=== PATIENT | female | born 1990 | race Two or more races ===

== ENCOUNTER 2017-11-09 16:40 | Inpatient (IN) | payer BC, OTHER ==
[~2017-11-09] VITALS: Ht 170.2 cm; Wt 77.1 kg
[2017-11-09] MEDS ORDERED: LACT. RINGERS/OXYTOCIN 20UNITS 1,000 ML IV SCH (17:08)
[2017-11-09] MEDS ORDERED: PREN27TA7 OR (17:11)
[2017-11-09] MEDS ORDERED: PHISODERM TOP SOLN 240ML BTL TOP PRN (17:15)
[2017-11-09] MEDS ORDERED: NALBUPHINE HCL 10 MG/1ml INJECTION IV PRN (17:15)
[2017-11-09] MEDS ORDERED: WITCH HAZEL-GLYCERIN PAD TOP PRN (17:15)
[2017-11-09] MEDS ORDERED: LIDOCAINE 2% (LOCAL ANESTH.) PF 5ml SDV ID ONE (17:15)
[2017-11-09] MEDS ORDERED: DERMOPLAST 60ML BOTTLE TOP PRN (17:15)
[2017-11-09] MEDS ORDERED: PENICILLIN G POT 5MIL/D5 50ML 50 ML IV ONE (17:15)
[2017-11-09] MEDS ORDERED: METHYLERGONOVINE MALEATE 0.2 MG/ML AMP IM PRN (17:15)
[2017-11-09] MEDS: LACTATED RINGER'S 1,000 ML IV SCH (17:30)
[2017-11-09 18:07] LABS: Eosinophils # (auto) 0 uL; Eosinophils % (auto) 0.1 % (0.0-7.0); Hemoglobin 11.6 g/dL (12.2-16.2); Lymphocytes # (auto) 1.3 uL; Monocytes # (auto) 0.9 uL; Red Cell Distribution Width 15.5 % (11.8-14.3)
[2017-11-09 18:09] LABS: Basophils # (auto) 0 uL; Basophils % (auto) 0.2 % (0.0-2.0); Hematocrit 36.3 % (36.0-46.0); Lymphocytes % (auto) 8.5 % (10.0-50.0); Mean Corpuscular Hemoglobin 23.4 pg (28.0-32.0); Mean Corpuscular Hgb Conc. 31.9 g/dL (32.0-36.0); Mean Corpuscular Volume 73.3 fL (80.0-100.0); Monocytes % (auto) 6.1 % (0.0-12.0); Neutrophils # (auto) 13.2 uL; Neutrophils % (auto) 85.1 % (37.0-80.0); Platelet Count (auto) 238 10^3/uL (140-450); Red Blood Cells 4.95 10^6/uL (4.0-5.20); White Blood Cell 15.4 10^3/uL (4.4-10.8)
[2017-11-09 18:18] LABS: INR 0.86 (0.9-1.15); Prothrombin Time 9.3 sec (9.27-12.13)
[2017-11-09 18:25] LABS: Urine Bacteria FEW /hpf (None Seen); Urine Blood Negative /uL (Negative); Urine Mucus FEW (None Seen); Urine Specific Gravity 1.015 (1.001-1.035); Urine WBC 18 /hpf (0 - 5)
[2017-11-09 18:32] LABS: Albumin 3.1 g/dL (3.4-5.0); BUN/Creatinine Ratio 8.9; Bilirubin, Total 0.3 mg/dL (0.2-1.0); Calcium 8.4 mg/dL (8.5-10.1); Potassium 3.6 mmol/L (3.5-5.1); Total Protein 7.4 g/dL (6.4-8.2)
[2017-11-09] MEDS ORDERED: PENICILLIN G POTASSIUM 2,500,000 UNITS in D5W 5% 50 ML IV SCH (21:15)
[2017-11-09] MEDS: ceFAZolin 1GM/100ML 100 ML IV SCH ×2 (21:24→22:00)
[2017-11-10] MEDS: LACTATED RINGER'S 1,000 ML IV SCH ×2 (01:08→09:08)
[2017-11-10 07:00] VITALS: BP 114/68
[2017-11-10] MEDS ORDERED: ACETAMINOPHEN 325 MG TAB PO PRN (07:30)
[2017-11-10] MEDS ORDERED: IBUPROFEN 600 MG TAB PO PRN (07:30)
[2017-11-10 11:00] VITALS: BP 121/65
[2017-11-10 15:00] VITALS: BP 110/68
[2017-11-10 19:25] VITALS: BP 110/70
[2017-11-10 23:00] VITALS: BP 106/58
[2017-11-11 03:58] VITALS: BP 106/56
[2017-11-11 05:06] LABS: RPR Non Reactive (Non Reactive)
[2017-11-11 07:00] VITALS: BP 113/66
== END 2017-11-11 08:15 | disposition home or self-care (01) | DRG 775 ==
LOC: LDRP 16:40 → OBSVTOIN 17:15 → LDRP 17:30
PROVIDERS: ADMIT Specialist; ATTEND Specialist
PROC: 10E0XZZ Delivery of Products of Conception, External Approach (ICD-10-PCS; principal; 2017-11-10)
DX: O76 Abnormality in fetal heart rate and rhythm complicating labor and delivery (principal); Z22.330 Carrier of Group B streptococcus; Z37.0 Single live birth; Z3A.39 39 weeks gestation of pregnancy
CPT/HCPCS: 36415; 59025; 59409; 80053; 81001; 81002; 85025; 85610; 85730; 86592; 86703; 86762; 86850; 86900; 86901; 87340; 96361; 96365; 96366; G0378; J0690; J2540; J2590; J7060

== ENCOUNTER 2021-11-28 07:28 | Observation (INO) | payer BC ==
[~2021-11-28 07:28] MED LIST: PREN27TA7 OR
== END 2021-11-28 11:38 | disposition home or self-care (01) ==
LOC: LDRP 09:58
PROVIDERS: ADMIT Obstetrics & Gynecology; ATTEND Obstetrics & Gynecology
DX: O48.0 Post-term pregnancy (principal); Z3A.49 Greater than 42 weeks gestation of pregnancy
CPT/HCPCS: 59025; 76818; 81002; 94760; G0378

== ENCOUNTER 2021-11-30 15:57 | Observation (INO) | payer BC | END 2021-11-30 17:38 | disposition home or self-care (01) | LOC: UNDOADMOB 15:57 → LDRP 15:57 | PROVIDERS: ADMIT Obstetrics & Gynecology; ATTEND Obstetrics & Gynecology | DX: O48.0 Post-term pregnancy (principal); Z3A.41 41 weeks gestation of pregnancy | CPT/HCPCS: 59025; 76818; 81002; 94760; G0378 ==

== ENCOUNTER 2021-11-30 23:36 | Inpatient (IN) | payer BC ==
[~2021-11-30] VITALS: Ht 170.2 cm; Wt 89.4 kg
[2021-12-01] MEDS ORDERED: LACTATED RINGER'S 1,000 ML IV SCH (00:30)
[2021-12-01] MEDS ORDERED: LIDOCAINE 2%HCL (LOCAL ANESTH.) INJ 10ml MDV IJ PRN (00:30)
[2021-12-01] MEDS ORDERED: PHISODERM TOP SOLN 240ML BTL TOP PRN (00:30)
[2021-12-01] MEDS ORDERED: DERMOPLAST 60ML BOTTLE TOP PRN (00:30)
[2021-12-01] MEDS ORDERED: WITCH HAZEL-GLYCERIN PAD TOP PRN (00:30)
[2021-12-01] MEDS ORDERED: LACT. RINGERS/OXYTOCIN 20UNITS 500 ML IV ONE (01:00)
[2021-12-01] MEDS ORDERED: ONDANSETRON HCL 4 MG/2 ML VIAL IM ONE (01:15)
[2021-12-01] MEDS ORDERED: ONDANSETRON HCL 4 MG/2 ML VIAL IV ONE (01:15)
[2021-12-01 01:26] LABS: Basophils # (auto) 0 10 ^3/uL (0-0.2); Eosinophils # (auto) 0 10 ^3/uL (0-0.8); Hemoglobin 10.2 g/dL (12.2-16.2)
[2021-12-01 01:28] LABS: Basophils % (auto) 0.1 % (0.0-2.0); Eosinophils % (auto) 0.3 % (0.0-7.0); Hematocrit 32.1 % (36.0-46.0); Lymphocytes # (auto) 2.1 10 ^3/uL (0.4-5.4); Lymphocytes % (auto) 16.9 % (10.0-50.0); Mean Corpuscular Hemoglobin 21.3 pg (28.0-32.0); Mean Corpuscular Hgb Conc. 31.7 g/dL (32.0-36.0); Mean Corpuscular Volume 67.1 fL (80.0-100.0); Neutrophils # (auto) 9.4 10 ^3/uL (1.6-8.6); Neutrophils % (auto) 74.7 % (37.0-80.0); Red Blood Cells 4.79 10^6/uL (4.0-5.20); White Blood Cell 12.6 10^3/uL (4.4-10.8)
[2021-12-01] MEDS ORDERED: BUTORPHANOL TARTRATE 2 MG/1 ML VIAL IV ONE (01:30)
[2021-12-01 01:41] LABS: Albumin 2.7 g/dL (3.4-5.0); Calcium 8.4 mg/dL (8.5-10.1); Potassium 3.9 mmol/L (3.5-5.1)
[2021-12-01 01:45] LABS: Bilirubin, Total 0.3 mg/dL (0.2-1.0); Total Protein 6.4 g/dL (6.4-8.2)
[2021-12-01] MEDS ORDERED: BUTORPHANOL TARTRATE 2 MG/1 ML VIAL IV PRN (01:45)
[2021-12-01] MEDS ORDERED: PROMETHAZINE HCL 25 MG/ML 1ML IV PRN (01:45)
[2021-12-01 01:48] LABS: INR 0.95 (0.9-1.15); Partial Thromboplastin Time 28.2 sec (23.6-33.0)
[2021-12-01 02:22] LABS: Alcohol, Urine < 3.0 mg/dL (0-10); Amphetamine Screen, Urine NEGATIVE (NEGATIVE); Barbiturate Scree,Urine NEGATIVE (NEGATIVE); Benzodiazephine Screen, Urine NEGATIVE (NEGATIVE); Cocaine Screen, Urine NEGATIVE (NEGATIVE); Opiate Scree,Urine NEGATIVE (NEGATIVE); Phencyclidine Screen, Urine NEGATIVE (NEGATIVE)
[2021-12-01 02:31] LABS: Cannabinoid Screen, Urine NEGATIVE (NEGATIVE)
[2021-12-01 02:37] LABS: Urine Bacteria NONE SEEN /hpf (None Seen); Urine Blood 2+ /uL (Negative); Urine Mucus FEW (None Seen); Urine Specific Gravity 1.025 (1.001-1.035); Urine WBC 26 /hpf (0 - 5)
[2021-12-01] MEDS: LACT. RINGERS/OXYTOCIN 20UNITS 500 ML IV ONE ×2 (05:26→05:30)
[2021-12-01 07:00] VITALS: BP 108/61
[2021-12-01] MEDS ORDERED: ACETAMINOPHEN 325 MG TAB PO PRN (07:15)
[2021-12-01] MEDS: IBUPROFEN 600 MG TAB PO PRN ×3 (07:55→21:14)
[2021-12-01 11:00] VITALS: BP_SYST 108; BP_SYST 110; BP_DIAS 61; BP_DIAS 64
[2021-12-01 11:46] LABS: Basophils # (auto) 0.1 10 ^3/uL (0-0.2); Eosinophils # (auto) 0 10 ^3/uL (0-0.8); Monocytes # (auto) 1.5 10 ^3/uL (0-1.3); Nucleated Red Blood Cells % 0.1 %
[2021-12-01 11:49] LABS: Basophils % (auto) 0.5 % (0.0-2.0); Eosinophils % (auto) 0.3 % (0.0-7.0); Hemoglobin 9.7 g/dL (12.2-16.2); Lymphocytes # (auto) 2.2 10 ^3/uL (0.4-5.4); Lymphocytes % (auto) 12.9 % (10.0-50.0); Mean Corpuscular Hemoglobin 21.5 pg (28.0-32.0); Mean Corpuscular Hgb Conc. 32.2 g/dL (32.0-36.0); Mean Corpuscular Volume 66.7 fL (80.0-100.0); Monocytes % (auto) 8.3 % (0.0-12.0); Neutrophils # (auto) 13.7 10 ^3/uL (1.6-8.6); White Blood Cell 17.5 10^3/uL (4.4-10.8)
[2021-12-01 12:04] LABS: INR 0.96 (0.9-1.15)
[2021-12-01 15:00] VITALS: BP 107/55
[2021-12-01 19:00] VITALS: BP 109/58
[2021-12-01 23:00] VITALS: BP 122/54
[2021-12-02 03:00] VITALS: BP 104/62
[2021-12-02] MEDS: IBUPROFEN 600 MG TAB PO PRN ×2 (03:53→10:46)
[2021-12-02 07:00] VITALS: BP 103/62
[2021-12-04 04:06] LABS: RPR Non Reactive (Non Reactive)
== END 2021-12-02 11:14 | disposition home or self-care (01) | DRG 807 ==
LOC: LDRP 23:36 → OBSVTOIN 23:36 → LDRP 23:50
PROVIDERS: ADMIT Obstetrics & Gynecology; ATTEND Obstetrics & Gynecology
PROC: 10E0XZZ Delivery of Products of Conception, External Approach (ICD-10-PCS; principal; 2021-12-01)
PROC: 10907ZC Drainage of Amniotic Fluid, Therapeutic from Products of Conception, Via Natural or Artificial Opening (ICD-10-PCS; 2021-12-01)
DX: O48.0 Post-term pregnancy (principal); Z37.0 Single live birth; Z3A.41 41 weeks gestation of pregnancy; Z20.822 Contact with and (suspected) exposure to COVID-19
CPT/HCPCS: 36415; 59025; 59409; 80053; 80307; 81001; 85025; 85610; 85730; 86592; 86850; 86900; 86901; 94760; 96365; 96366; 96374; G0378; J2001; J2405; J2590

== ENCOUNTER 2023-02-25 11:27 | Emergency (ER) | payer BC ==
[~2023-02-25] VITALS: Ht 170.2 cm; Wt 71.5 kg
[2023-02-25 12:09] LABS: Basophils # (auto) 0.1 10 ^3/uL (0-0.2); Eosinophils # (auto) 0 10 ^3/uL (0-0.8); Lymphocytes # (auto) 0.9 10 ^3/uL (0.4-5.4); Monocytes # (auto) 0.5 10 ^3/uL (0-1.3); Neutrophils # (auto) 13.3 10 ^3/uL (1.6-8.6); White Blood Cell 14.8 10^3/uL (4.4-10.8)
[2023-02-25 12:11] LABS: Basophils % (auto) 0.8 % (0.0-2.0); Hematocrit 36.6 % (36.0-46.0); Hemoglobin 11.7 g/dL (12.2-16.2); Lymphocytes % (auto) 6.2 % (10.0-50.0); Mean Corpuscular Hemoglobin 23.7 pg (28.0-32.0); Mean Corpuscular Hgb Conc. 31.9 g/dL (32.0-36.0); Mean Corpuscular Volume 74.1 fL (80.0-100.0); Monocytes % (auto) 3.1 % (0.0-12.0); Neutrophils % (auto) 89.9 % (37.0-80.0); Red Blood Cells 4.94 10^6/uL (4.0-5.20); Red Cell Distribution Width 14.3 % (11.8-14.3)
[2023-02-25] MEDS ORDERED: SODIUM CHLORIDE 0.9% 1,000 ML IV ONE (12:15)
[2023-02-25] MEDS ORDERED: ONDANSETRON HCL 4 MG/2 ML VIAL IV ONE (12:15)
[2023-02-25 12:17] LABS: Urine Bacteria NONE SEEN /hpf (None Seen); Urine Blood Negative /uL (Negative); Urine Clarity Clear (Clear); Urine Color Yellow (Yellow); Urine Mucus FEW (None Seen); Urine Protein, UAD TRACE (Negative); Urine Specific Gravity 1.032 (1.001-1.035); Urine Urobilinogen Normal (Negative); Urine WBC 1 /hpf (0 - 5); Urine pH 5.5 (5.0-8.0)
[2023-02-25 12:45] LABS: Albumin 3.8 g/dL (3.2-4.8); Alkaline Phosphatase 44 U/L (46-116); Anion Gap 8.9 (5-15); Aspartate Aminotransferase 10 U/L (13-40); Calcium 8.3 mg/dL (8.5-10.1); Carbon Dioxide 22.1 mmol/L (20-30); Chloride 103 mmol/L (98-107); Glucose 113 mg/dL (74-106); Potassium 3.7 mmol/L (3.5-5.1); Sodium 134 mmol/L (136-145)
[2023-02-25 12:46] LABS: Bilirubin, Total 0.6 mg/dL (0.2-1.0); Total Protein 6.5 g/dL (5.7-8.2)
[2023-02-25 12:52] LABS: Alanine Aminotransferase < 9 U/L (7-40); BUN/Creatinine Ratio 11.9 (10.0-20.0); Blood Urea Nitrogen < 5 mg/dL (9-23)
[2023-02-25] MEDS ORDERED: METO-281 PO (13:49)
[2023-02-25 14:30] VITALS: BP 102/61; PULSE 69; RESP 17; TEMP 97.8; O2SAT 97
== END 2023-02-25 14:41 | disposition home or self-care (01) ==
LOC: ER 11:27
DX: O21.0 Mild hyperemesis gravidarum (principal); R10.2 Pelvic and perineal pain; D72.829 Elevated white blood cell count, unspecified; Z3A.17 17 weeks gestation of pregnancy
CPT/HCPCS: 36415; 76805; 80053; 81001; 81025; 82010; 84702; 85025; 96374; 99285; J2405; J7030

== ENCOUNTER 2023-07-09 12:00 | Observation (INO) | payer BC ==
[~2023-07-09 12:00] MED LIST changes: +METO-281 PO
[2023-07-09 12:58] LABS: Urine WBC None Seen /hpf (0 - 5)
[2023-07-09 13:14] LABS: Urine Bacteria NONE SEEN /hpf (None Seen); Urine Blood Negative /uL (Negative); Urine Clarity Clear (Clear); Urine Color Colorless (Yellow); Urine Protein, UAD Negative (Negative); Urine Specific Gravity 1.012 (1.001-1.035); Urine Urobilinogen Normal (Negative)
[2023-07-09 13:17] LABS: Basophils # (auto) 0 10 ^3/uL (0-0.2); Basophils % (auto) 0.1 % (0.0-2.0); Hemoglobin 10.4 g/dL (12.2-16.2)
[2023-07-09 13:20] LABS: Eosinophils # (auto) 0.1 10 ^3/uL (0-0.8); Eosinophils % (auto) 0.5 % (0.0-7.0); Hematocrit 33.5 % (36.0-46.0); Lymphocytes # (auto) 1.7 10 ^3/uL (0.4-5.4); Lymphocytes % (auto) 18.6 % (10.0-50.0); Mean Corpuscular Hemoglobin 20.7 pg (28.0-32.0); Mean Corpuscular Hgb Conc. 30.9 g/dL (32.0-36.0); Mean Corpuscular Volume 66.9 fL (80.0-100.0); Monocytes # (auto) 0.8 10 ^3/uL (0-1.3); Monocytes % (auto) 9.2 % (0.0-12.0); Neutrophils # (auto) 6.6 10 ^3/uL (1.6-8.6); Neutrophils % (auto) 71.6 % (37.0-80.0); Red Cell Distribution Width 17.4 % (11.8-14.3); White Blood Cell 9.2 10^3/uL (4.4-10.8)
[2023-07-09 13:30] LABS: Amphetamine Screen, Urine Neg (NEGATIVE); Barbiturate Scree,Urine Neg (NEGATIVE); Benzodiazephine Screen, Urine Neg (NEGATIVE); Cocaine Screen, Urine Neg (NEGATIVE); Creatinine, Urine 47.91 mg/dL (30.0-125.0); Urine Protein/Creatinine Ratio 0.23
[2023-07-09 13:31] LABS: Cannabinoid Screen, Urine Neg (NEGATIVE); Opiate Scree,Urine Neg (NEGATIVE); Phencyclidine Screen, Urine Neg (NEGATIVE)
[2023-07-09 13:33] LABS: Alanine Aminotransferase 11 U/L (7-40); Albumin 3.9 g/dL (3.2-4.8); Alkaline Phosphatase 125 U/L (46-116); Anion Gap 8 (5-15); Aspartate Aminotransferase 17 U/L (13-40); Bilirubin, Total 0.6 mg/dL (0.2-1.0); Calcium 8.7 mg/dL (8.7-10.4); Carbon Dioxide 21 mmol/L (20-30); Chloride 107 mmol/L (98-107); Glucose 78 mg/dL (74-106); Potassium 4.2 mmol/L (3.5-5.1); Sodium 136 mmol/L (136-145); Total Protein 6.6 g/dL (5.7-8.2); Uric Acid 2.8 mg/dL (3.1-7.8)
[2023-07-09 13:35] LABS: BUN/Creatinine Ratio 12.8 (10.0-20.0); Blood Urea Nitrogen < 5 mg/dL (9-23)
[2023-07-09 13:37] LABS: INR 0.93 (0.9-1.15); Partial Thromboplastin Time 26.8 SEC (24.5-34.5); Prothrombin Time 9.8 sec (9.3-11.8)
[2023-07-10 06:06] LABS: Varicella Zoster IgG Antibody >4000 index (Immune >165)
[2023-07-10 08:06] LABS: RPR Non Reactive (Non Reactive)
[2023-07-11 00:06] LABS: Chlamydia Trachomatis, NAA Negative (Negative); Neisseria gonorrhoeae, NAA Negative (Negative)
[2023-07-11 19:06] LABS: Treponema pallidum Ab (FTA-Ab) Non Reactive (Non Reactive)
== END 2023-07-09 13:00 | disposition home or self-care (01) ==
LOC: UNDOADMOB 12:00 → LDRP 12:00 → UNDODISOB 13:00
PROVIDERS: ADMIT Obstetrics & Gynecology; ATTEND Obstetrics & Gynecology
DX: O40.3XX0 Polyhydramnios, third trimester, not applicable or unspecified (principal); O26.893 Other specified pregnancy related conditions, third trimester; R10.2 Pelvic and perineal pain; Z3A.37 37 weeks gestation of pregnancy; Z79.899 Other long term (current) drug therapy; Z86.2 Personal history of diseases of the blood and blood-forming organs and certain disorders involving the immune mechanism
CPT/HCPCS: 36415; 59025; 76805; 76818; 80053; 80307; 81001; 81002; 82570; 83036; 84156; 84550; 84702; 85025; 85379; 85610; 85730; 86592; 86703; 86762; 86787; 86850; 86900; 86901; 87086; 87340; 87491; 87591; G0378

== ENCOUNTER 2023-07-12 08:52 | Observation (INO) | payer BC | END 2023-07-12 10:08 | disposition home or self-care (01) | LOC: LDRP 08:52 | PROVIDERS: ADMIT Obstetrics & Gynecology; ATTEND Obstetrics & Gynecology | DX: O40.3XX0 Polyhydramnios, third trimester, not applicable or unspecified (principal); Z3A.38 38 weeks gestation of pregnancy | CPT/HCPCS: 76818; G0378; 59025; 81002; 94760 ==

== ENCOUNTER 2023-07-16 08:48 | Observation (INO) | payer BC | END 2023-07-16 09:56 | disposition home or self-care (01) | LOC: LDRP 08:48 → UNDOADMOB 08:48 → LDRP 08:56 → UNDODISOB 09:56 | PROVIDERS: ADMIT Obstetrics & Gynecology; ATTEND Obstetrics & Gynecology | DX: O40.3XX0 Polyhydramnios, third trimester, not applicable or unspecified (principal); O62.9 Abnormality of forces of labor, unspecified; Z3A.38 38 weeks gestation of pregnancy | CPT/HCPCS: 59025; 76818; 81002; 94760; G0378 ==

== ENCOUNTER 2023-07-19 09:03 | Observation (INO) | payer BC | END 2023-07-19 11:07 | disposition home or self-care (01) | LOC: LDRP 09:03 | PROVIDERS: ADMIT Obstetrics & Gynecology; ATTEND Obstetrics & Gynecology | DX: O40.3XX0 Polyhydramnios, third trimester, not applicable or unspecified (principal); Z3A.39 39 weeks gestation of pregnancy | CPT/HCPCS: 59025; 76818; 81002; 94760; G0378 ==

== ENCOUNTER 2023-07-23 07:59 | Observation (INO) | payer BC | END 2023-07-23 09:48 | disposition home or self-care (01) | LOC: UNDOADMOB 07:59 → LDRP 07:59 | PROVIDERS: ADMIT Obstetrics & Gynecology; ATTEND Obstetrics & Gynecology | DX: O40.3XX0 Polyhydramnios, third trimester, not applicable or unspecified (principal); O62.9 Abnormality of forces of labor, unspecified; O09.33 Supervision of pregnancy with insufficient antenatal care, third trimester; Z3A.39 39 weeks gestation of pregnancy | CPT/HCPCS: 59025; 76818; 81002; 94760; G0378 ==

== ENCOUNTER 2023-07-26 18:08 | Inpatient (IN) | payer BC ==
[2023-07-26] MEDS ORDERED: PHISODERM TOP SOLN 240ML BTL TOP PRN (18:30)
[2023-07-26] MEDS ORDERED: WITCH HAZEL-GLYCERIN PAD TOP PRN (18:30)
[2023-07-26] MEDS ORDERED: LACTATED RINGER'S 1,000 ML IV SCH (18:30)
[2023-07-26] MEDS ORDERED: LIDOCAINE 2%HCL (LOCAL ANESTH.) INJ 20ML MDV IJ PRN (18:30)
[2023-07-26] MEDS ORDERED: BUTORPHANOL TARTRATE 2 MG/1 ML VIAL IV PRN ×2 (18:30)
[2023-07-26] MEDS ORDERED: miSOPROStol 50 MCG per PRE-CUT 1/2 TAB PO PRN (18:30)
[2023-07-26] MEDS ORDERED: DERMOPLAST 60ML BOTTLE TOP PRN (18:30)
[2023-07-26] MEDS ORDERED: PROMETHAZINE HCL 25 MG/ML 1ML IV PRN (18:30)
[2023-07-26 19:09] LABS: Basophils # (auto) 0 10 ^3/uL (0-0.2); Hematocrit 33.5 % (36.0-46.0); Mean Corpuscular Hemoglobin 20.1 pg (28.0-32.0); Mean Corpuscular Hgb Conc. 30.3 g/dL (32.0-36.0); Mean Corpuscular Volume 66.4 fL (80.0-100.0); Monocytes # (auto) 0.9 10 ^3/uL (0-1.3)
[2023-07-26 19:11] LABS: Basophils % (auto) 0.3 % (0.0-2.0); Eosinophils # (auto) 0.1 10 ^3/uL (0-0.8); Eosinophils % (auto) 0.5 % (0.0-7.0); Hemoglobin 10.2 g/dL (12.2-16.2); Lymphocytes # (auto) 1.9 10 ^3/uL (0.4-5.4); Lymphocytes % (auto) 18.7 % (10.0-50.0); Monocytes % (auto) 8.5 % (0.0-12.0); Neutrophils # (auto) 7.5 10 ^3/uL (1.6-8.6); Nucleated Red Blood Cells % 0.1 %; Red Blood Cells 5.05 10^6/uL (4.0-5.20); White Blood Cell 10.4 10^3/uL (4.4-10.8)
[2023-07-26 19:20] LABS: Urine Bacteria NONE SEEN /hpf (None Seen); Urine Blood Negative /uL (Negative); Urine Clarity HAZY (Clear); Urine Color Colorless (Yellow); Urine Mucus FEW (None Seen); Urine Protein, UAD Negative (Negative); Urine Specific Gravity 1.016 (1.001-1.035); Urine Urobilinogen Normal (Negative); Urine WBC 1 /hpf (0 - 5); Urine pH 6.5 (5.0-8.0)
[2023-07-26 19:31] LABS: INR 0.92 (0.9-1.15); Partial Thromboplastin Time 26.9 SEC (24.5-34.5); Prothrombin Time 9.7 sec (9.3-11.8)
[2023-07-26 19:34] LABS: Amphetamine Screen, Urine Neg (NEGATIVE); Barbiturate Scree,Urine Neg (NEGATIVE); Benzodiazephine Screen, Urine Neg (NEGATIVE); Cannabinoid Screen, Urine Neg (NEGATIVE); Cocaine Screen, Urine Neg (NEGATIVE); Opiate Scree,Urine Neg (NEGATIVE); Phencyclidine Screen, Urine Neg (NEGATIVE)
[2023-07-26 19:37] LABS: Alanine Aminotransferase 10 U/L (7-40); Alkaline Phosphatase 159 U/L (46-116); Anion Gap 7 (5-15); Aspartate Aminotransferase 17 U/L (13-40); BUN/Creatinine Ratio 12.2 (10.0-20.0); Blood Urea Nitrogen 5 mg/dL (9-23); Calcium 8.5 mg/dL (8.7-10.4); Carbon Dioxide 21 mmol/L (20-30); Chloride 109 mmol/L (98-107); Glucose 96 mg/dL (74-106); Potassium 3.5 mmol/L (3.5-5.1); Sodium 137 mmol/L (136-145)
[2023-07-26 19:38] LABS: Albumin 3.9 g/dL (3.2-4.8); Bilirubin, Total 0.4 mg/dL (0.2-1.0); Total Protein 6.7 g/dL (5.7-8.2)
[2023-07-29 08:07] LABS: RPR Non Reactive (Non Reactive)
[2023-07-30 19:06] LABS: Treponema pallidum Ab (FTA-Ab) Non Reactive (Non Reactive)
== END 2023-07-26 20:04 | disposition home or self-care (01) | DRG 833 ==
LOC: LDRP 18:08 → UNDOADMIN 18:08 → LDRP 18:26
PROVIDERS: ADMIT Obstetrics & Gynecology; ATTEND Obstetrics & Gynecology
DX: O48.0 Post-term pregnancy (principal)
CPT/HCPCS: 36415; 59025; 76818; 80053; 80307; 81001; 81002; 85025; 85610; 85730; 86592; 86850; 86900; 86901; 94760; G0378

== ENCOUNTER 2023-07-28 09:32 | Observation (INO) | payer BC ==
[~2023-07-28] VITALS: Ht 170.2 cm; Wt 90.7 kg
== END 2023-07-28 16:01 | disposition home or self-care (01) ==
LOC: LDRP 13:45
PROVIDERS: ADMIT Obstetrics & Gynecology; ATTEND Obstetrics & Gynecology
DX: O48.0 Post-term pregnancy (principal); O62.9 Abnormality of forces of labor, unspecified; Z3A.40 40 weeks gestation of pregnancy
CPT/HCPCS: 59025; 76818; 81002; 94760; G0378

== ENCOUNTER 2023-07-30 08:11 | Observation (INO) | payer BC | END 2023-07-30 10:03 | disposition home or self-care (01) | LOC: LDRP 08:11 → UNDOADMOB 08:11 → LDRP 08:13 | PROVIDERS: ADMIT Obstetrics & Gynecology; ATTEND Obstetrics & Gynecology | DX: O48.0 Post-term pregnancy (principal); O62.9 Abnormality of forces of labor, unspecified; Z3A.40 40 weeks gestation of pregnancy | CPT/HCPCS: 59025; 76818; 81002; 94760; G0378 ==

== ENCOUNTER 2023-08-01 06:05 | Inpatient (IN) | payer BC ==
[~2023-08-01] VITALS: Ht 170.2 cm; Wt 91.6 kg
[2023-08-01] MEDS ORDERED: LACTATED RINGER'S 1,000 ML IV SCH ×2 (06:30)
[2023-08-01] MEDS ORDERED: BUTORPHANOL TARTRATE 2 MG/1 ML VIAL IV PRN ×2 (06:30)
[2023-08-01] MEDS ORDERED: PHISODERM TOP SOLN 240ML BTL TOP PRN (06:30)
[2023-08-01] MEDS ORDERED: WITCH HAZEL-GLYCERIN PAD TOP PRN (06:30)
[2023-08-01] MEDS ORDERED: DERMOPLAST 60ML BOTTLE TOP PRN (06:30)
[2023-08-01] MEDS ORDERED: PENICILLIN G POT 5MIL/D5 50ML 50 ML IV ONE (06:30)
[2023-08-01] MEDS ORDERED: PROMETHAZINE HCL 25 MG/ML 1ML IV PRN (06:30)
[2023-08-01] MEDS ORDERED: LIDOCAINE 2%HCL (LOCAL ANESTH.) INJ 20ML MDV IJ PRN (06:30)
[2023-08-01] MEDS ORDERED: TERBUTALINE SULFATE 1 MG/ML 1ML VIAL SC PRN (06:30)
[2023-08-01 07:09] LABS: Basophils # (auto) 0 10 ^3/uL (0-0.2); Basophils % (auto) 0.3 % (0.0-2.0); Hemoglobin 10.2 g/dL (12.2-16.2); Mean Corpuscular Hgb Conc. 30.7 g/dL (32.0-36.0); White Blood Cell 8.8 10^3/uL (4.4-10.8)
[2023-08-01 07:11] LABS: Eosinophils # (auto) 0.1 10 ^3/uL (0-0.8); Eosinophils % (auto) 0.7 % (0.0-7.0); Hematocrit 33.4 % (36.0-46.0); Lymphocytes # (auto) 2.1 10 ^3/uL (0.4-5.4); Lymphocytes % (auto) 23.4 % (10.0-50.0); Mean Corpuscular Hemoglobin 20.1 pg (28.0-32.0); Mean Corpuscular Volume 65.6 fL (80.0-100.0); Monocytes # (auto) 0.7 10 ^3/uL (0-1.3); Monocytes % (auto) 7.8 % (0.0-12.0); Neutrophils % (auto) 67.8 % (37.0-80.0); Red Blood Cells 5.09 10^6/uL (4.0-5.20); Red Cell Distribution Width 18.2 % (11.8-14.3)
[2023-08-01 07:18] LABS: Urine Bacteria FEW /hpf (None Seen); Urine Blood Negative /uL (Negative); Urine Clarity HAZY (Clear); Urine Color Colorless (Yellow); Urine Protein, UAD Negative (Negative); Urine Urobilinogen Normal (Negative); Urine WBC 2 /hpf (0 - 5); Urine pH 6.5 (5.0-8.0)
[2023-08-01 07:21] LABS: Amphetamine Screen, Urine Neg (NEGATIVE); Benzodiazephine Screen, Urine Neg (NEGATIVE)
[2023-08-01 07:22] LABS: Barbiturate Scree,Urine Neg (NEGATIVE); Cannabinoid Screen, Urine Neg (NEGATIVE); Cocaine Screen, Urine Neg (NEGATIVE); Opiate Scree,Urine Neg (NEGATIVE); Phencyclidine Screen, Urine Neg (NEGATIVE)
[2023-08-01 07:24] LABS: Alanine Aminotransferase 12 U/L (7-40); Albumin 3.8 g/dL (3.2-4.8); Alkaline Phosphatase 169 U/L (46-116); Anion Gap 7 (5-15); Aspartate Aminotransferase 19 U/L (13-40); BUN/Creatinine Ratio 11.1 (10.0-20.0); Bilirubin, Total 0.5 mg/dL (0.2-1.0); Blood Urea Nitrogen 5 mg/dL (9-23); Calcium 8.7 mg/dL (8.5-10.1); Carbon Dioxide 22 mmol/L (20-30); Chloride 109 mmol/L (98-107); Glucose 100 mg/dL (74-106); Potassium 3.5 mmol/L (3.5-5.1); Sodium 138 mmol/L (136-145); Total Protein 6.4 g/dL (5.7-8.2)
[2023-08-01 07:27] LABS: INR 0.91 (0.9-1.15); Partial Thromboplastin Time 26.9 SEC (24.5-34.5); Prothrombin Time 9.6 sec (9.3-11.8)
[2023-08-01 07:48] LABS: Anisocytosis Slight; Hypochromia Moderate; Platelet Estimate Adequate
[2023-08-01] MEDS ORDERED: PENICILLIN G POTASSIUM 2,500,000 UNITS in D5W 5% 50 ML IV SCH (10:30)
[2023-08-02 08:06] LABS: RPR Non Reactive (Non Reactive)
[2023-08-04 19:06] LABS: Treponema pallidum Ab (FTA-Ab) Non Reactive (Non Reactive)
== END 2023-08-01 09:43 | disposition left against medical advice (07) | DRG 833 ==
LOC: LDRP 06:05 → UNDODISIN 09:43
PROVIDERS: ADMIT Obstetrics & Gynecology; ATTEND Obstetrics & Gynecology
DX: O48.0 Post-term pregnancy (principal); O40.3XX0 Polyhydramnios, third trimester, not applicable or unspecified; Z53.29 Procedure and treatment not carried out because of patient's decision for other reasons; Z3A.40 40 weeks gestation of pregnancy
CPT/HCPCS: 36415; 59025; 76805; 76818; 80053; 80307; 81001; 81002; 85025; 85610; 85730; 86592; 86850; 86900; 86901; 94760; G0378; J7060

== ENCOUNTER 2023-08-15 15:33 | Inpatient (IN) | payer BC ==
[~2023-08-15] VITALS: Ht 170.2 cm; Wt 82.6 kg
[2023-08-15 16:26] LABS: Urine Bacteria NONE SEEN /hpf (None Seen); Urine Blood 2+ /uL (Negative); Urine Budding Yeast MODERATE /hpf (None Seen); Urine Clarity HAZY (Clear); Urine Color Yellow (Yellow); Urine Mucus FEW (None Seen); Urine Protein, UAD TRACE (Negative); Urine Specific Gravity 1.021 (1.001-1.035); Urine Urobilinogen Normal (Negative); Urine WBC 93 /hpf (0 - 5); Urine WBC Clumps PRESENT /hpf (None Seen); Urine pH 6.5 (5.0-8.0)
[2023-08-15 16:45] LABS: Vaginal Trichomonas Not Present
[2023-08-15 16:47] LABS: Vaginal Bacteria Moderate
[2023-08-15 16:48] LABS: Vaginal Clue Cells Few; Vaginal Epithelial Cells Few
[2023-08-15 16:53] LABS: Chloride 108 mmol/L (98-107); Potassium 3.4 mmol/L (3.5-5.1); Sodium 140 mmol/L (136-145)
[2023-08-15 16:54] LABS: Anion Gap 8 (5-15); Calcium 8.9 mg/dL (8.7-10.4); Carbon Dioxide 24 mmol/L (20-30)
[2023-08-15 16:59] LABS: BUN/Creatinine Ratio 12.7 (10.0-20.0); Blood Urea Nitrogen 7 mg/dL (9-23); Glucose 86 mg/dL (74-106)
[2023-08-15 17:30] LABS: Basophils # (auto) 0.1 10 ^3/uL (0-0.2); Basophils % (auto) 0.7 % (0.0-2.0); Eosinophils # (auto) 0.1 10 ^3/uL (0-0.8); Eosinophils % (auto) 0.9 % (0.0-7.0); Mean Corpuscular Hgb Conc. 30.6 g/dL (32.0-36.0); Monocytes # (auto) 0.6 10 ^3/uL (0-1.3); Nucleated Red Blood Cells % 0.1 %
[2023-08-15 17:31] LABS: Hematocrit 36.3 % (36.0-46.0); Hemoglobin 11.1 g/dL (12.2-16.2); Lymphocytes # (auto) 2.2 10 ^3/uL (0.4-5.4); Lymphocytes % (auto) 22.4 % (10.0-50.0); Mean Corpuscular Volume 65.1 fL (80.0-100.0); Monocytes % (auto) 6.3 % (0.0-12.0); Neutrophils # (auto) 6.9 10 ^3/uL (1.6-8.6); Neutrophils % (auto) 69.7 % (37.0-80.0); Red Blood Cells 5.57 10^6/uL (4.0-5.20); Red Cell Distribution Width 19.3 % (11.8-14.3); White Blood Cell 9.9 10^3/uL (4.4-10.8)
[2023-08-15] MEDS ORDERED: cefOXitin 2GM/100ML 100 ML IV SCH (17:45)
[2023-08-15] MEDS ORDERED: IBUPROFEN 800 MG TAB PO PRN (17:45)
[2023-08-15] MEDS ORDERED: AMPICILLIN SOD 1 GM VL IV ONE (18:15)
[2023-08-15] MEDS ORDERED: GENTAMICIN PER PHARMACY 0 ML IV SCH (19:30)
[2023-08-15] MEDS: CLINDAMYCIN 900MG IV 50 ML IV SCH (20:12)
[2023-08-15 20:56] VITALS: PULSE 80; RESP 18; O2SAT 100
[2023-08-15] MEDS: GENTAMICIN SULFATE 280 MG in D5W 5% 100 ML IV ONE (21:16)
[2023-08-15 22:20] VITALS: BP 115/78; PULSE 75; RESP 19; TEMP 98.3; O2SAT 98
[2023-08-15 22:21] VITALS: BP 115/78; PULSE 75; RESP 17; RESP 19; TEMP 98.3; O2SAT 98
[2023-08-15] MEDS: LACTATED RINGER'S 1,000 ML IV SCH (23:56)
[2023-08-16] VITALS (7 sets, daily range): BP systolic 91–142; BP diastolic 46–65; PULSE 57–92; RESP 16–22; TEMP 98.1–98.9; O2SAT 96–99
[2023-08-16 00:31] LABS: INR 1.06 (0.9-1.15); Partial Thromboplastin Time 27.6 SEC (24.5-34.5); Prothrombin Time 11.1 sec (9.3-11.8)
[2023-08-16] MEDS: AMPICILLIN SOD 2 GM in SODIUM CHL 0.9% 100 ML IV SCH (00:53)
[2023-08-16] MEDS ORDERED: fentaNYL CITRATE 100 MCG/2 ML VL ONE (07:07)
[2023-08-16] MEDS ORDERED: PROPOFOL 10 MG/ML 20 ML IV ONE (07:07)
[2023-08-16] MEDS ORDERED: HYDROmorphone HCL 2 MG/ML VL/or syr IV PRN (08:30)
[2023-08-16] MEDS ORDERED: HYDROcodone-ACET 5/325MG TAB PO PRN (08:30)
[2023-08-16] MEDS ORDERED: MEPERIDINE HCL (25 MG/ML) 1ML VIAL IV PRN (08:30)
[2023-08-16] MEDS ORDERED: ONDANSETRON HCL 4 MG/2 ML VIAL IV PRN (08:30)
[2023-08-16] MEDS: GENTAMICIN SULFATE IV SCH (20:00)
[2023-08-16] MEDS: D5W 5% IV SCH (20:00)
[2023-08-17 05:00] VITALS: BP 90/44; PULSE 51; RESP 15; TEMP 97.8; O2SAT 98
[2023-08-17 05:41] LABS: Basophils # (auto) 0 10 ^3/uL (0-0.2); Eosinophils # (auto) 0.1 10 ^3/uL (0-0.8); Hematocrit 31.7 % (36.0-46.0); Hemoglobin 9.6 g/dL (12.2-16.2); Mean Corpuscular Hgb Conc. 30.3 g/dL (32.0-36.0); Monocytes # (auto) 0.5 10 ^3/uL (0-1.3); Red Cell Distribution Width 19.8 % (11.8-14.3); White Blood Cell 5.5 10^3/uL (4.4-10.8)
[2023-08-17 05:45] LABS: Basophils % (auto) 0.4 % (0.0-2.0); Eosinophils % (auto) 2.2 % (0.0-7.0); Lymphocytes # (auto) 1.8 10 ^3/uL (0.4-5.4); Lymphocytes % (auto) 33.6 % (10.0-50.0); Mean Corpuscular Hemoglobin 19.7 pg (28.0-32.0); Mean Corpuscular Volume 65.1 fL (80.0-100.0); Monocytes % (auto) 8.7 % (0.0-12.0); Neutrophils % (auto) 55.1 % (37.0-80.0); Red Blood Cells 4.87 10^6/uL (4.0-5.20)
[2023-08-17 05:56] LABS: Alanine Aminotransferase 13 U/L (7-40); Albumin 3.6 g/dL (3.2-4.8); Alkaline Phosphatase 81 U/L (46-116); Anion Gap 8 (5-15); Aspartate Aminotransferase 12 U/L (13-40); Blood Urea Nitrogen 8 mg/dL (9-23); Calcium 8.7 mg/dL (8.7-10.4); Carbon Dioxide 24 mmol/L (20-30); Chloride 108 mmol/L (98-107); Glucose 82 mg/dL (74-106); Sodium 140 mmol/L (136-145)
[2023-08-17 05:57] LABS: Bilirubin, Total 0.6 mg/dL (0.2-1.0)
[2023-08-17 08:00] VITALS: PULSE 60; RESP 18; O2SAT 99
[2023-08-17 08:55] VITALS: BP 97/52; PULSE 51; RESP 19; TEMP 98.1; O2SAT 93
[2023-08-17] MEDS: GENTAMICIN SULFATE IV SCH (11:41)
[2023-08-17] MEDS: D5W 5% IV SCH (11:41)
[2023-08-17 13:22] VITALS: BP 110/64; PULSE 75; RESP 20; TEMP 98.3; O2SAT 96
[2023-08-17 17:00] VITALS: BP 100/64; PULSE 85; RESP 19; TEMP 98.3; O2SAT 96
[2023-08-17 20:00] VITALS: PULSE 57; RESP 19; O2SAT 99
[2023-08-18 05:00] VITALS: BP 111/54; PULSE 76; RESP 20; TEMP 97.9; O2SAT 98
[2023-08-18 06:56] LABS: Basophils # (auto) 0 10 ^3/uL (0-0.2); Basophils % (auto) 0.6 % (0.0-2.0); Eosinophils # (auto) 0.1 10 ^3/uL (0-0.8); Hemoglobin 10.1 g/dL (12.2-16.2); Monocytes # (auto) 0.4 10 ^3/uL (0-1.3); White Blood Cell 5.1 10^3/uL (4.4-10.8)
[2023-08-18 06:58] LABS: Eosinophils % (auto) 2.6 % (0.0-7.0); Hematocrit 33.1 % (36.0-46.0); Lymphocytes # (auto) 1.7 10 ^3/uL (0.4-5.4); Lymphocytes % (auto) 33.9 % (10.0-50.0); Mean Corpuscular Hemoglobin 19.8 pg (28.0-32.0); Mean Corpuscular Hgb Conc. 30.5 g/dL (32.0-36.0); Mean Corpuscular Volume 64.9 fL (80.0-100.0); Monocytes % (auto) 8.7 % (0.0-12.0); Neutrophils # (auto) 2.8 10 ^3/uL (1.6-8.6); Neutrophils % (auto) 54.2 % (37.0-80.0); Red Blood Cells 5.09 10^6/uL (4.0-5.20)
[2023-08-18 07:07] LABS: Red Cell Distribution Width 20.1 % (11.8-14.3)
[2023-08-18 08:00] VITALS: BP 113/69; PULSE 78; RESP 18; TEMP 98.4; O2SAT 98
[2023-08-18 09:02] VITALS: BP 113/69; PULSE 78; RESP 18; TEMP 98.4; O2SAT 98
[2023-08-18] MEDS ORDERED: AUG875T PO (09:25)
[2023-08-18 10:27] LABS: Anisocytosis Slight; Hypochromia Marked; Platelet Estimate Adequate
[2023-08-18 11:28] VITALS: BP 113/69; PULSE 78; RESP 18; TEMP 98.4; O2SAT 98
== END 2023-08-18 12:37 | disposition home or self-care (01) | DRG 769 ==
LOC: ER 15:33 → OVERFLOW 17:47 → CENTRAL 17:47 → OBSVTOIN 08-16 16:02
PROVIDERS: ADMIT Obstetrics & Gynecology; ATTEND Obstetrics & Gynecology
PROC: 10D17ZZ Extraction of Products of Conception, Retained, Via Natural or Artificial Opening (ICD-10-PCS; principal; 2023-08-16 07:42)
DX: O72.2 Delayed and secondary postpartum hemorrhage (principal); O86.12 Endometritis following delivery; B95.1 Streptococcus, group B, as the cause of diseases classified elsewhere; O99.825 Streptococcus B carrier state complicating the puerperium
CPT/HCPCS: 36415; 76856; 80048; 80053; 80170; 81001; 82565; 85025; 85610; 85730; 86850; 86900; 86901; 87070; 87075; 87077; 87081; 87186; 87205; 87210; 93005; 96365; G0378; J2704; J3490; J7060